=== PATIENT | male | born 1985 | race Native Hawaiian/Other Pacific Islander ===

== ENCOUNTER 2023-03-21 08:26 | Emergency (ER) | payer OTHER ==
[~2023-03-21] VITALS: Ht 185.4 cm; Wt 117.9 kg
[2023-03-21 08:32] VITALS: BP 144/70; TEMP 97.2
[2023-03-21 09:18] LABS: PLATELET COUNT 256 K/uL (142-355)
[2023-03-21 09:30] LABS: POTASSIUM 4.5 mmol/L (3.6-5.2)
== END 2023-03-21 10:51 | disposition home or self-care (01) ==
LOC: ED 08:26
PROVIDERS: Emergency Medicine Emergency Medical Services
DX: D17.21 Benign lipomatous neoplasm of skin and subcutaneous tissue of right arm (principal); B19.20 Unspecified viral hepatitis C without hepatic coma; I10 Essential (primary) hypertension; L53.9 Erythematous condition, unspecified; R16.1 Splenomegaly, not elsewhere classified; K57.90 Diverticulosis of intestine, part unspecified, without perforation or abscess without bleeding
CPT/HCPCS: 36415; 80053; 80307; 81002; 82150; 83690; 83735; 85027; 85610; 96361; 96374; 99284; J1885; Q9963